=== PATIENT | female | born 1975 | race Caucasian/White ===

== ENCOUNTER 2016-10-30 07:41 | Emergency (ER) | payer BC ==
[~2016-10-30] VITALS: Ht 167.6 cm; Wt 74.6 kg
[~2016-10-30 07:41] MED LIST: NO DAILY MEDS
[2016-10-30 07:42] VITALS: TEMP 97.7; Ht 167.6 cm; Wt 74.6 kg
[2016-10-30] MEDS ORDERED: NORMAL SALINE 1,000 ML IV ONE (07:46)
--- OUTSIDE RECORDS SUMMARY | 2016-10-30 07:46 | XMS REPORT | Continuity of Care Document ---
Author Author [facility] Organization [facility] Address Unknown Phone Unavailable Support Name Relationship Address Phone JO MOORE MD Caregiver [address] [place] [address] DONNA LARES MD Caregiver [address] [place] [address] [place] [id number] TAWANA GONZALEZ Next Of Kin [address] [place] [phone] Insurance Providers Payer Name Policy Number Subscriber Name Relationship Meritain n [id number] Ivana Paez 16 Self Advance Directives Directive Response Recorded Date/Time Advanced Directives Type None 01/20/14 12:25pm Problems Medical Problems Problem Onset Date Status Concussion Unknown Active Head injury Unknown Active Concussion Unknown Active Medications Medication Dose Route Sig Days/Qty Instructions Order Date Discontinued Date Status [None] 01/24/09 08/19/09 Discontinued [Bactrim] 03/20/09 08/19/09 Discontinued [Water Pill Otc] 03/20/09 08/19/09 Discontinued [Amoxicillin] 08/19/09 08/20/09 Discontinued [No Known Meds] 01/20/14 Active Ondansetron 4 Mg PO EVERY 4-6 HOURS 15 Qty 01/20/14 Active Social History Social History Problem Response Recorded Date/Time Smoking Status Current every day smoker 01/20/2014 12:30pm Hx Substance Use No 01/20/2014 12:30pm Hx Alcohol Use No 01/20/2014 12:30pm Query Response Start Date Stop Date Smoking Status Unknown if ever smoked Hospital Discharge Instructions No hospital discharge instructions. Plan of Care No plan of care. Functional Status Query Response Date Recorded Physical Hygiene Self January 20, 2014 12:30pm Disabilities None January 20, 2014 12:30pm Devices Used None January 20, 2014 12:30pm Dressing Self January 20, 2014 12:30pm Ambulation Self January 20, 2014 12:30pm Diet Self January 20, 2014 12:30pm Mental Status Alert Oriented January 20, 2014 1:32pm Disabilities None January 20, 2014 12:30pm Devices Used None January 20, 2014 12:30pm Physical Hygiene Self January 20, 2014 12:30pm Dressing Self January 20, 2014 12:30pm Ambulation Self January 20, 2014 12:30pm Diet Self January 20, 2014 12:30pm Allergies, Adverse Reactions, Alerts Allergen Type Severity Reaction Status Last Updated No Known Allergies Active 01/20/14 Immunizations Name Given Type Hx Influenza Vaccination Y March 2009 Historical Hx Pneumococcal Vaccination No Historical Hx Tetanus, Diptheria, Pertussis Yes Historical Hx Influenza Vaccination Y March 2009 Historical Hx Tetanus, Diptheria, Pertussis Yes Historical Vital Signs Acute Vital Signs Vital Response Date/Time Temperature (Fahrenheit) 97 deg F (96.8 - 99.1) Temperature (Calculated Celsius) 36.1140 degrees C (36.0 - 37.3) Pulse Rate (adult) 67 bpm (60 - 100) Respiratory Rate 18 breaths/min (10 - 20) O2 Sat by Pulse Oximetry 100 % (90 - 100) Blood Pressure 117/75 mm Hg Height 5 ft 6 in Weight 161 lb Body Mass Index 26.0 kg/m^2 Results Test Source Date Result Interp. Ref. Range Comments Alanine Aminotransferase (ALT/SGPT) May 26, 2009 7:20pm 18 U/L N 9- 52 Albumin May 26, 2009 7:20pm 4.06 G/DL N 3.5-5.0 Albumin/Globulin Ratio May 26, 2009 7:20pm 1.3 RATIO N 1.1-2.2 Alkaline Phosphatase May 26, 2009 7:20pm 112 U/L N 38-126 Anion Gap August 22, 2009 5:03am 7.1 MEQ/L N 5-15 Aspartate Amino Transf (AST/SGOT) May 26, 2009 7:20pm 33 U/L N 14- 36 BUN/Creatinine Ratio August 22, 2009 5:03am 14 RATIO DN 6-26 Band Neutrophils # May 26, 2009 7:20pm 0.2 T/MM3 - Band Neutrophils % May 26, 2009 7:20pm 5.0 % N 0-6 Basophils # (Auto) August 22, 2009 5:03am 0.1 T/MM3 N 0-0.2 Basophils # (Manual) March 27, 2009 8:20am 0.0 T/MM3 N 0-0.2 Basophils % (Manual) March 27, 2009 8:20am 1.0 % N 0-2 Basophils (%) (Auto) August 22, 2009 5:03am 1.2 % N 0-2 Blood Urea Nitrogen August 22, 2009 5:03am 10.0 MG/DL N 7-17 C-Reactive Protein March 27, 2009 8:20am < 5.0 MG/L 0-9 Calcium Level August 22, 2009 5:03am 9.1 MG/DL N 8.4-10.2 Calculated Osmolality August 22, 2009 5:03am 267 MOSM/KG N 261-280 Carbon Dioxide Level August 22, 2009 5:03am 32 MEQ/L H 22-30 Chloride Level August 22, 2009 5:03am 100 MEQ/L N 98-107 Creatinine August 22, 2009 5:03am 0.7 MG/DL N 0.7-1.2 Eosinophils # (Auto) August 22, 2009 5:03am 0.1 T/MM3 N 0-0.5 Eosinophils # (Manual) May 26, 2009 7:20pm 0.1 T/MM3 N 0-0.5 Eosinophils % (Manual) May 26, 2009 7:20pm 2.0 % N 0-4 Eosinophils (%) (Auto) August 22, 2009 5:03am 3.4 % N 0-4 Erythrocyte Sedimentation Rate March 27, 2009 8:20am 15 MM/HR N 0-20 Globulin May 26, 2009 7:20pm 3.1 G/DL N 2.4-3.6 Glucose Level August 22, 2009 5:03am 101 MG/DL N 65-110 Group A Streptococcus Screen January 29, 2009 11:00am Positive - Hematocrit August 22, 2009 5:03am 41.6 % N 36-46 Hemoglobin August 22, 2009 5:03am 13.6 GM/DL N 12-16 Influenza Type A Antigen January 24, 2009 4:55pm Negative - Influenza Type B Antigen January 24, 2009 4:55pm Negative - Lymphocytes # (Auto) August 22, 2009 5:03am 1.6 T/MM3 N 1-4.8 Lymphocytes # (Manual) May 26, 2009 7:20pm 2.5 T/MM3 N 1-4.8 Lymphocytes % (Manual) May 26, 2009 7:20pm 50.0 % H 23-45 Lymphocytes (%) (Auto) August 22, 2009 5:03am 38.6 % N 23-45 Mean Corpuscular Hemoglobin August 22, 2009 5:03am 29.1 UUG N 26-34 Mean Corpuscular Hemoglobin Concent August 22, 2009 5:03am 32.7 GM/DL N 31-37 Mean Corpuscular Volume August 22, 2009 5:03am 88.9 UM3 N 80-100 Mean Platelet Volume August 22, 2009 5:03am 10.9 UM3 H 7.4-10.4 Monocytes # (Auto) August 22, 2009 5:03am 0.4 T/MM3 N 0-0.8 Monocytes # (Manual) May 26, 2009 7:20pm 0.1 T/MM3 N 0-0.8 Monocytes % (Manual) May 26, 2009 7:20pm 2.0 % N 0-9.0 Monocytes (%) (Auto) August 22, 2009 5:03am 10.6 % H 0-9.0 Neutrophils # (Auto) August 22, 2009 5:03am 1.9 T/MM3 N 1.8-7.7 Neutrophils # (Manual) May 26, 2009 7:20pm 2.0 T/MM3 N 1.8-7.7 Neutrophils % (Manual) May 26, 2009 7:20pm 41.0 % N 33-66 Neutrophils (%) (Auto) August 22, 2009 5:03am 46.2 % N 33-66 Platelet Count August 22, 2009 5:03am 217 T/MM3 N 130-400 Potassium Level August 22, 2009 5:03am 4.3 MEQ/L N 3.6-5 RDW Standard Deviation August 22, 2009 5:03am 44.7 FL N 36.9-50.2 Red Blood Count August 22, 2009 5:03am 4.68 M/MM3 N 4.00-5.20 Sodium Level August 22, 2009 5:03am 139 MEQ/L N 134-144 Tests Not Done May 26, 2009 9:25pm Not done - Has specimen been collected/obtained? Y Total Bilirubin May 26, 2009 7:20pm < 0.10 MG/DL L 0.20-1.30 Total Protein May 26, 2009 7:20pm 7.2 G/DL N 6.3-8.2 Urine Bilirubin May 26, 2009 9:25pm Negative - Has specimen been collected/obtained? Y Urine Blood May 26, 2009 9:25pm Negative - Has specimen been collected/obtained? Y Urine Collection Type May 26, 2009 9:25pm Voided - Has specimen been collected/obtained? Y Urine Color May 26, 2009 9:25pm Yellow - Has specimen been collected/obtained? Y Urine Glucose (UA) May 26, 2009 9:25pm Negative - Has specimen been collected/obtained? Y Urine Ketones May 26, 2009 9:25pm Negative - Has specimen been collected/obtained? Y Urine Leukocyte Esterase May 26, 2009 9:25pm Negative - Has specimen been collected/obtained? Y Urine Nitrite May 26, 2009 9:25pm Negative - Has specimen been collected/obtained? Y Urine Protein May 26, 2009 9:25pm Negative - Has specimen been collected/obtained? Y Urine Specific [place] May 26, 2009 9:25pm 1.020 - Has specimen been collected/obtained? Y Urine Turbidity May 26, 2009 9:25pm Clear - Has specimen been collected/obtained? Y Urine Urobilinogen May 26, 2009 9:25pm Normal EU/DL - Has specimen been collected/obtained? Y Urine pH May 26, 2009 9:25pm 6.5 - Has specimen been collected/ obtained? Y White Blood Count August 22, 2009 5:03am 4.2 T/MM3 L 4.5-11.0 Glucometer October 08, 2013 11:09am 141 mg/dL H 65-110 Lab Scanned Report January 29, 2009 3:58pm LAB TEST FORM REQUEST [id number] - Glomerular Filtration Rate Calc August 22, 2009 5:03am 95 - Group A Streptococcus Culture Throat January 24, 2009 10:03am Name: IVANA PAEZ Unit #: [id number] : 1975 Sex: F Loc / Svc: ED DOS: 01/20/14 Signed Report #: [id number] DIAGNOSTIC IMAGING REPORT TYPE OF EXAM: CT HEAD W/O CONTRAST Dictated By: ALISON WAITE MD INDICATION: ITS.REASON: hit head, LOC CT HEAD W/O CONTRAST: Comparison: None Technique: Axial CT images through the head were performed without contrast. FINDINGS: The ventricles are of normal size, shape, and configuration for the patient's age. There is no evidence of acute intracranial hemorrhage, midline displacement, or mass effect. The CT attenuation of the brain parenchyma is normal within the cerebellum, brain stem , and cerebral hemispheres. The tympanic cavities and mastoid air cells are free of appreciable disease. There are no definite fractures of the skull base, calvarium, or visualized portion of the midface. IMPRESSION: No CT evidence of acute traumatic intracranial injury. . Procedures No known history of procedures. Encounters Encounter Location Date/Time Departed Emergency Room [facility] 01/20/14 12:06pm Recent Diagnosis
--- OUTSIDE RECORDS SUMMARY | 2016-10-30 07:46 | XMS REPORT | Continuity of Care Document ---
Author Author [facility] Organization [facility] Address Unknown Phone Unavailable Support Name Relationship Address Phone NOEMI BONDS DO Caregiver [facility] [address] [place] [phone] JO MOORE MD Caregiver [address] [place] [address] TAWANA GONZALEZ Next Of Kin [address] [place] [address] Insurance Providers Payer Name Policy Number Subscriber Name Relationship Meritain Pcn [id number] Ivana Paez 16 Self Problems Medical Problems Problem Onset Date Status Concussion Unknown Active Head injury Unknown Active Concussion Unknown Active Concussion Unknown Active Headache Unknown Active Concussion Unknown Active Medications Medication Dose Route Sig Days/Qty Instructions Order Date Discontinued Date Status [None] 01/24/09 08/19/09 Discontinued [Bactrim] 03/20/09 08/19/09 Discontinued [Water Pill Otc] 03/20/09 08/19/09 Discontinued [Amoxicillin] 08/19/09 08/20/09 Discontinued [No Known Meds] 01/20/14 Active Ondansetron 4 Mg PO EVERY 4-6 HOURS 15 Qty 01/20/14 Active Methylprednisolone 4 Mg PO DAILY For HEADACHE 1 Qty Use as Directed 01/24 Active Meclizine HCl 1 Tab PO TWICE A DAY For DIZZINESS 20 Qty 01/24/14 Active Social History Social History Problem Response Recorded Date/Time Smoking Status Current every day smoker 01/24/2014 2:58pm Hx Substance Use No 01/24/2014 2:58pm Hx Alcohol Use No 01/24/2014 2:58pm Query Response Start Date Stop Date Smoking Status Unknown if ever smoked Hospital Discharge Instructions No hospital discharge instructions. Plan of Care No plan of care. Functional Status Query Response Date Recorded Physical Hygiene Self January 24, 2014 2:58pm Disabilities None January 24, 2014 2:58pm Devices Used None January 24, 2014 2:58pm Dressing Self January 24, 2014 2:58pm Ambulation Self January 24, 2014 2:58pm Diet Self January 24, 2014 2:58pm Mental Status Alert Oriented January 24, 2014 2:58pm Disabilities None January 24, 2014 2:58pm Devices Used None January 24, 2014 2:58pm Physical Hygiene Self January 24, 2014 2:58pm Dressing Self January 24, 2014 2:58pm Ambulation Self January 24, 2014 2:58pm Diet Self January 24, 2014 2:58pm Allergies, Adverse Reactions, Alerts Allergen Type Severity Reaction Status Last Updated No Known Allergies Active 01/20/14 Immunizations Name Given Type Hx Influenza Vaccination Y FALL 2012 Historical Hx Pneumococcal Vaccination No Historical Hx Tetanus, Diptheria, Pertussis Yes Historical Hx Influenza Vaccination Y FALL 2012 Historical Hx Tetanus, Diptheria, Pertussis Yes Historical Vital Signs Acute Vital Signs Vital Response Date/Time Temperature (Fahrenheit) 97.4 deg F (96.8 - 99.1) Temperature (Calculated Celsius) 36.69856 degrees C (36.0 - 37.3) Pulse Rate (adult) 59 bpm (60 - 100) Respiratory Rate 16 breaths/min (10 - 20) O2 Sat by Pulse Oximetry 97 % (90 - 100) Blood Pressure 120/80 mm Hg Height 5 ft 6 in Weight 163 lb Body Mass Index 26.0 kg/m^2 Results Test Source Date Result Interp. Ref. Range Comments Alanine Aminotransferase (ALT/SGPT) January 24, 2014 3:25pm 39 U/L N 9- 52 Albumin January 24, 2014 3:25pm 4.1 G/DL N 3.5-5.0 Albumin/Globulin Ratio January 24, 2014 3:25pm 1.5 RATIO N 1.1-2.2 Alkaline Phosphatase January 24, 2014 3:25pm 98 U/L N 38-126 Anion Gap January 24, 2014 3:25pm 13 MEQ/L N 5-15 Aspartate Amino Transf (AST/SGOT) January 24, 2014 3:25pm 24 U/L N 14-36 BUN/Creatinine Ratio January 24, 2014 3:25pm 16 RATIO N 6-26 Band Neutrophils # May 26, 2009 7:20pm 0.2 T/MM3 - Band Neutrophils % May 26, 2009 7:20pm 5.0 % N 0-6 Basophils # (Auto) January 24, 2014 3:25pm 0.0 T/MM3 N 0-0.2 Basophils # (Manual) March 27, 2009 8:20am 0.0 T/MM3 N 0-0.2 Basophils % (Manual) March 27, 2009 8:20am 1.0 % N 0-2 Basophils (%) (Auto) January 24, 2014 3:25pm 0.6 % N 0-2 Blood Urea Nitrogen January 24, 2014 3:25pm 16.0 MG/DL N 7-17 C-Reactive Protein January 24, 2014 3:25pm < 5.0 MG/L 0-9 Calcium Level January 24, 2014 3:25pm 8.7 MG/DL N 8.4-10.2 Calculated Osmolality January 24, 2014 3:25pm 280 MOSM/KG N 261-280 Carbon Dioxide Level January 24, 2014 3:25pm 28 MEQ/L N 22-30 Chloride Level January 24, 2014 3:25pm 105 MEQ/L N 98-107 Creatinine January 24, 2014 3:25pm 1.0 MG/DL N 0.7-1.2 Eosinophils # (Auto) January 24, 2014 3:25pm 0.2 T/MM3 N 0-0.5 Eosinophils # (Manual) May 26, 2009 7:20pm 0.1 T/MM3 N 0-0.5 Eosinophils % (Manual) May 26, 2009 7:20pm 2.0 % N 0-4 Eosinophils (%) (Auto) January 24, 2014 3:25pm 3.6 % N 0-4 Erythrocyte Sedimentation Rate January 24, 2014 3:25pm 5 MM/HR N 0-20 Globulin January 24, 2014 3:25pm 2.7 G/DL N 2.4-3.6 Glucose Level January 24, 2014 3:25pm 68 MG/DL N 65-110 Group A Streptococcus Screen January 29, 2009 11:00am Positive - Hematocrit January 24, 2014 3:25pm 40.7 % N 36-46 Hemoglobin January 24, 2014 3:25pm 13.2 GM/DL N 12-16 Influenza Type A Antigen January 24, 2009 4:55pm Negative - Influenza Type B Antigen January 24, 2009 4:55pm Negative - Lymphocytes # (Auto) January 24, 2014 3:25pm 2.4 T/MM3 N 1-4.8 Lymphocytes # (Manual) May 26, 2009 7:20pm 2.5 T/MM3 N 1-4.8 Lymphocytes % (Manual) May 26, 2009 7:20pm 50.0 % H 23-45 Lymphocytes (%) (Auto) January 24, 2014 3:25pm 49.6 % H 23-45 Mean Corpuscular Hemoglobin January 24, 2014 3:25pm 29.5 UUG N 26-34 Mean Corpuscular Hemoglobin Concent January 24, 2014 3:25pm 32.4 GM/DL N 31-37 Mean Corpuscular Volume January 24, 2014 3:25pm 91.1 UM3 N 80-100 Mean Platelet Volume January 24, 2014 3:25pm 11.4 UM3 N 9.4-12.4 Monocytes # (Auto) January 24, 2014 3:25pm 0.4 T/MM3 N 0-0.8 Monocytes # (Manual) May 26, 2009 7:20pm 0.1 T/MM3 N 0-0.8 Monocytes % (Manual) May 26, 2009 7:20pm 2.0 % N 0-9.0 Monocytes (%) (Auto) January 24, 2014 3:25pm 7.4 % N 0-9.0 Neutrophils # (Auto) January 24, 2014 3:25pm 1.8 T/MM3 N 1.8-7.7 Neutrophils # (Manual) May 26, 2009 7:20pm 2.0 T/MM3 N 1.8-7.7 Neutrophils % (Manual) May 26, 2009 7:20pm 41.0 % N 33-66 Neutrophils (%) (Auto) January 24, 2014 3:25pm 38.6 % N 33-66 Platelet Count January 24, 2014 3:25pm 181 T/MM3 N 130-400 Potassium Level January 24, 2014 3:25pm 3.6 MEQ/L N 3.6-5 RDW Standard Deviation January 24, 2014 3:25pm 43.7 FL N 36.9-50.2 Red Blood Count January 24, 2014 3:25pm 4.47 M/MM3 N 4.00-5.20 Sodium Level January 24, 2014 3:25pm 146 MEQ/L H 134-144 Tests Not Done May 26, 2009 9:25pm Not done - Has specimen been collected/obtained? Y Total Bilirubin January 24, 2014 3:25pm < 0.10 MG/DL L 0.20-1.30 Total Protein January 24, 2014 3:25pm 6.8 G/DL N 6.3-8.2 Urine Bilirubin January 24, 2014 4:25pm Negative - Has specimen been collected/obtained? Y Urine Blood January 24, 2014 4:25pm Negative - Has specimen been collected/obtained? Y Urine Collection Type January 24, 2014 4:25pm Cleancatch-midstream - Has specimen been collected/obtained? Y Urine Color January 24, 2014 4:25pm Yellow - Has specimen been collected/obtained? Y Urine Glucose (UA) January 24, 2014 4:25pm Negative - Has specimen been collected/obtained? Y Urine Ketones January 24, 2014 4:25pm Negative - Has specimen been collected/obtained? Y Urine Leukocyte Esterase January 24, 2014 4:25pm Negative - Has specimen been collected/obtained? Y Urine Nitrite January 24, 2014 4:25pm Negative - Has specimen been collected/obtained? Y Urine Protein January 24, 2014 4:25pm Negative - Has specimen been collected/obtained? Y Urine Specific [place] January 24, 2014 4:25pm >=1.030 H - Has specimen been collected/obtained? Y Urine Turbidity January 24, 2014 4:25pm Sl cloudy - Has specimen been collected/obtained? Y Urine Urobilinogen January 24, 2014 4:25pm 0.2 EU/DL - Has specimen been collected/obtained? Y Urine pH January 24, 2014 4:25pm 6.0 - Has specimen been collected/ obtained? Y White Blood Count January 24, 2014 3:25pm 4.7 T/MM3 N 4.5-11.0 Chemistry Specimen Hemolysis January 24, 2014 3:25pm < 15 0-25 0-25: No Hemolysis.26-70: Slight Hemolysis - can falsely elevate K and Urine Protein. 71-285: Moderate Hemolysis - can falsely elevate K, Troponin I, CA 19-9, PTH, CSF GLucose, and Urine Protein, and can falsely decrease Phenytoin. 286-999: Gross Hemolysis - can falsely elevate K, Troponin I, CA 19-9, PTH, CSF Glucose, and Urine Protine, and can falsely decrease Phenytoin. Recommend specimen recollection. Urinalysis Comment January 24, 2014 4:25pm Microscopic not ind. - Has specimen been collected/obtained? Y Glucometer October 08, 2013 11:09am 141 mg/dL H 65-110 Lab Scanned Report January 29, 2009 3:58pm LAB TEST FORM REQUEST [id number] - Turbidity January 24, 2014 3:25pm < 20 0-20 Glomerular Filtration Rate Calc January 24, 2014 3:25pm 61 - Immature Granulocyte # (Auto) January 24, 2014 3:25pm 0.01 T/MM3 N 0.00- 0.03 Immature Granulocyte % (Auto) January 24, 2014 3:25pm 0.2 % N 0.0-0.5 Icterus Index January 24, 2014 3:25pm < 2 0-7 Group A Streptococcus Culture Throat January 24, 2009 10:03am Name: IVANA PAEZ Unit #: [id number] : 1975 Sex: F Loc / Svc: ED DOS: 01/24/14 Signed Report #: [id number] DIAGNOSTIC IMAGING REPORT TYPE OF EXAM: CT HEAD W/O CONTRAST Dictated By: ALISON WAITE MD INDICATION: ITS.REASON: altered mental status CT HEAD W/O CONTRAST: Comparison: January 20, 2014 Technique: Axial CT images through the head were performed without contrast. FINDINGS: The ventricles are of normal size, shape, and contour for the patient 's age. The brainstem, cerebellum, and cerebral hemispheres have a normal morphology and CT attenuation. There is no evidence of midline displacement. No hemorrhage, signs of acute territorial stroke, mass effect, mass lesions, or edema is evident. The visualized portions of the skull base, midface, and calvarium demonstrate no abnormality. The paranasal sinuses are well aerated and free of significant disease. The tympanic and mastoid cavities appear normal. IMPRESSION: No acute intracranial abnormality or hemorrhage. . Procedures No known history of procedures. Encounters Encounter Location Date/Time Departed Emergency Room [facility] 01/24/14 2:40pm Departed Emergency Room [facility] 01/20/14 12:06pm Recent Diagnosis
--- OUTSIDE RECORDS SUMMARY | 2016-10-30 07:46 | XMS REPORT | Continuity of Care Document ---
Author Author [facility] Organization [facility] Address Unknown Phone Unavailable Allergies Active Description Code Type Severity Reaction Onset Reported/Identified Relationship to Patient Clinical Status Yes No Known Allergies No Known Allergies Drug Allergy Unknown N/A 10/08/2013 Medications Problems Procedures Results Test Result Range CBC W/DIFF - 10/25/14 09:41 GRANULOCYTE # 6.4 k/cumm 2.0-9.0 GRANULOCYTE % 77 % 50-75 LYMPHOCYTE # 1.1 k/cumm 1.0-4.0 LYMPHOCYTE % 13 % 20-30 MEAN CELL HGB 29.3 pg 27.0-33.0 MEAN CELL HGB CONCENTRATION 33.1 g/dL 32.0-37.0 MEAN CELL VOLUME 88.6 fl 80.0-100.0 MONOCYTE # 0.8 k/cumm 0.1-1.0 MONOCYTE % 9 % 4-6 RED BLOOD CELL 4.47 m/cumm 4.00-6.00 RED CELL DISTRIBUTION WIDTH 13.9 % 11.0- 15.6 WHITE BLOOD CELL 8.3 k/cumm 5.0-10.0 HEMOGLOBIN 13.1 gm/dL 12.0-16.0 HEMATOCRIT 39.6 % 37.0-47.0 PLATELET COUNT 172 k/cumm 150-400 HEPATIC FUNCTION PANEL - 10/25/14 09:41 BILI UNCONJUGATED 0.4 mg/dL 0.0-0.7 AST/SGOT 17 Units/L 10-37 ALT/SGPT 29 Units/L < 66 TOTAL PROTEIN 7.2 gm/dL 6.4-8.2 ALBUMIN 3.5 gm/dL 3.4-5.0 BILI TOTAL 0.6 mg/dL 0.0-1.0 ALKALINE PHOSPHATASE TOTAL 83 IU/L 45- 117 BILI CONJUGATED 0.2 mg/dL 0.0-0.3 LIPASE - 10/25/14 09:41 LIPASE 83 Units/L 73-393 CHEM/HEM PROFILE-BEDSIDE - 10/25/14 09:46 POTASSIUM 3.5 mmol/L 3.5-5.3 METHOD Bedside ANION GAP 23 mmol/L 10-20 METHOD Bedside GLUCOSE 104 mg/dL 70-99 BLOOD UREA NITROGEN 3 mg/dL 7-20 CREATININE 0.7 mg/dL 0.6-1.0 HEMOGLOBIN 13.6 gm/dL 12.0-16.0 HEMATOCRIT 40.0 % 37.0-47.0 SODIUM 138 mmol/L 135-148 CHLORIDE 97 mmol/L 98-110 CARBON DIOXIDE 22 mmol/L 21-32 CALCIUM IONIZED 4.6 mg/dL 4.5-5.3 URINALYSIS, ROUTINE - 10/25/14 10:22 UA LEUKOCYTE ESTERASE DIPSTICK TRACE NEGATIVE UA NITRITE DIPSTICK POSITIVE NEGATIVE UA PROTEIN DIPSTICK 1+ NEGATIVE UA GLUCOSE DIPSTICK TRACE NEGATIVE UA KETONE DIPSTICK TRACE NEGATIVE UA UROBILINOGEN DIPSTICK NORMAL NORMAL UA BILIRUBIN DIPSTICK NEGATIVE NEGATIVE UA BLOOD DIPSTICK NEGATIVE NEGATIVE UA SPECIFIC GRAVITY 1.015 1.015-1.025 UR PH 6.0 5.0-7.0 UA MICROSCOPIC - 10/25/14 10:22 UA EPITHELIAL CELLS 1+ epi/hpf 0 - 1+ UA MUCUS 1+ NEG TO 1+ UA RBC 0-3 rbc/hpf 0 - 3 UA VOLUME FOR EXAM 12.0 mL (12mL STD) UA WBC 5-10 wbc/hpf 0 - 5 Encounters ACCT No. Visit Date/Time Discharge Status Pt. Type Provider Facility Loc./Unit Complaint [id number] 10/25/2014 09:04:00 2014 11:22:00 DIS Emergency Leda CARTAGENA, [facility]
--- OUTSIDE RECORDS SUMMARY | 2016-10-30 07:46 | XMS REPORT | Continuity of Care Document ---
Author Author [facility] Organization [facility] Address Unknown Phone Unavailable Support Name Relationship Address Phone YOKO KELLY MD Caregiver [address] [place] [address] [place] [address] Unavailable YOKO KELLY MD Caregiver [address] [place] [address] [place] [address] Unavailable FRANCIA BIRCH DO Caregiver [address] [address] Unavailable ARSH FLORES DO Caregiver [address] [place] [address] Unavailable TAWANA GONZALEZ Next Of Kin [address] [place] [phone] Insurance Providers Guarantor Ivana Paez Address [address] [place] [address] CP Email [email or web address] [facility] Policy Number [id number] Subscriber's Name Ivana Paez Relationship 18 Self Group Number [id number] Advance Directives Directive Response Recorded Date/Time Ordered Resuscitation Status Full Code 08/13/16 7:06am Resuscitation Documents on File No 08/13/16 7:45am DPOA for Healthcare Only No 08/13/16 8:59am Living Will No 08/13/16 7:45am Problems Active Problems Medical Problem Onset Date Status Allergic reaction caused by a drug Unknown Acute Concussion Unknown Acute Concussion Unknown Acute Concussion Unknown Acute Concussion Unknown Acute Cystitis Unknown Acute Head injury Unknown Acute Headache Unknown Acute Hx of headache Unknown Chronic Intractable abdominal pain Unknown Acute Nausea & vomiting Unknown Acute Patient left without being seen Unknown Acute Tobacco dependence Unknown Chronic UTI (urinary tract infection) Unknown Acute UTI (urinary tract infection) Unknown Acute Surgical Problem Onset Date Status S/P complete hysterectomy Unknown Resolved Past Problems Medical Problem Onset Date Abdominal pain Unknown Medications Current Home Medications Medication Dose Units Route Directions Days Qty Instructions Start Date No Daily Meds 08/13/16 Past Home Medications Medication Directions Ordered Status Amoxicillin , 08/19/09 Discontinued Bactrim , 03/20/09 Discontinued None , 01/24/09 Discontinued Sulfamethoxazole/Trimethoprim (Bactrim Ds Tablet) 1 Each Tablet, 1 Tab Oral Twice A Day 11/07/14 Discontinued Water Pill Otc , 03/20/09 Discontinued Social History Social History Problem Response Recorded Date/Time Onset Date Status Chewing Tobacco Status No 08/13/2016 4:54am Not Applicable Not Applicable Hx Substance Use No 08/13/2016 4:54am Not Applicable Not Applicable Hx Alcohol Use Y OCC 08/13/2016 4:54am Not Applicable Not Applicable Has the pt used tobacco in the last 12 months Yes 08/13/2016 7:52am Not Applicable Not Applicable Tobacco Usage smoke 01/20/2014 12:51pm Not Applicable Not Applicable Query Response Start Date Stop Date Smoking Status Light Smoker Hospital Discharge Instructions No hospital discharge instructions. Plan of Care Discharge Date 08/13/16 9:35pm Disposition 07 AGAINST MEDICAL ADVICE Prescriptions See Medication Section Functional Status Query Response Date Recorded Mobility Status Ambulatory August 13, 2016 8:10am Assistive Devices None August 13, 2016 8:10am Activity Limitations None August 13, 2016 8:10am Feeding Ability Independent August 13, 2016 8:10am Toileting Ability Independent August 13, 2016 8:10am Grooming Ability Independent August 13, 2016 8:10am Dressing Ability Independent August 13, 2016 8:10am Driving Ability Independent August 13, 2016 8:10am Housework Ability Independent August 13, 2016 8:10am Meal Preparation Ability Independent August 13, 2016 8:10am Stair Climbing Ability Independent August 13, 2016 8:10am Ability to complete ADL's impeded by No change August 13, 2016 8:10am Cognitive/Perceptual Impairments None August 13, 2016 8:10am Preferred Method of Learning Reading August 13, 2016 8:10am Allergies, Adverse Reactions, Alerts Allergen Type Severity Reaction Status Last Updated Sulfamethoxazole Allergy Severe RESP Active 08/13/16 Trimethoprim Allergy Severe RESP Active 08/13/16 Immunizations Query Response on File Recorded Date/Time Hx Influenza Vaccination Y fall 201508/13/16 7:52am Hx Pneumococcal Vaccination No 08/13/16 7:52am Hx Tetanus, Diptheria, Pertussis Yes 11/07/14 2:03pm Hx Influenza Vaccination Y fall 201508/13/16 7:52am Hx Tetanus, Diptheria, Pertussis Yes 11/07/14 2:03pm Influenza Vaccine Hx 08/13/16 12:00pm Vital Signs Acute Vital Signs Vital Response Date/Time Temperature (Fahrenheit) 97.6 deg F (96.8 - 99.1) 08/13/2016 8:00pm Temperature (Calculated Celsius) 36.29220 degrees C (36.0 - 37.3) 08/13/2016 8:00pm Pulse Rate (adult) 60 bpm (60 - 100) 08/13/2016 8:00pm Respiratory Rate 22 breaths/min (10 - 20) 08/13/2016 8:00pm O2 Sat by Pulse Oximetry 97 % (90 - 100) 08/13/2016 8:00pm Oxygen Delivery Method Room Air 08/13/2016 8:00pm Blood Pressure 110/65 mm Hg 08/13/2016 8:00pm Blood Pressure Source Automatic Cuff 08/13/2016 8:00pm Height (Feet) 5 feet 08/13/2016 8:59am Height (Inches) 6.00 inches 08/13/2016 8:59am Weight (Kilograms) 73.200 kg 08/13/2016 8:10am Body Mass Index (BMI) 26.1 08/13/2016 7:44am Results Laboratory Results Test Name Result Units Flags Reference Collection Date/Time Result Date/ Time Comments White Blood Count 9.6 T/MM3 4.5-11.0 08/13/2016 5:04am 08/13/2016 5: 16am Red Blood Count 5.16 M/MM3 4.00-5.20 08/13/2016 5:04am 08/13/2016 5: 16am Hemoglobin 15.1 GM/DL 12-16 08/13/2016 5:04am 08/13/2016 5:16am Hematocrit 46.3 % H 36-46 08/13/2016 5:04am 08/13/2016 5:16am Mean Corpuscular Volume 89.7 UM3 80-100 08/13/2016 5:04am 08/13/2016 5: 16am Mean Corpuscular Hemoglobin 29.3 UUG 26-34 08/13/2016 5:04am 2016 5:16am Mean Corpuscular Hemoglobin Concent 32.6 GM/DL 31-37 08/13/2016 5:04am 08/13/2016 5:16am RDW Standard Deviation 43.3 FL 36.9-50.2 08/13/2016 5:04am 08/13/2016 5 :16am Platelet Count 218 T/MM3 130-400 08/13/2016 5:04am 08/13/2016 5:16am Mean Platelet Volume 11.5 UM3 9.4-12.4 08/13/2016 5:04am 08/13/2016 5: 16am Neutrophils (%) (Auto) 78.6 % H 33-66 08/13/2016 5:04am 08/13/2016 5: 16am Lymphocytes (%) (Auto) 14.4 % L 23-45 08/13/2016 5:04am 08/13/2016 5: 16am Monocytes (%) (Auto) 4.3 % 0-9.0 08/13/2016 5:04am 08/13/2016 5:16am Eosinophils (%) (Auto) 2.2 % 0-4 08/13/2016 5:04am 08/13/2016 5:16am Basophils (%) (Auto) 0.2 % 0-2 08/13/2016 5:04am 08/13/2016 5:16am Immature Granulocyte % (Auto) 0.3 % 0.0-0.5 08/13/2016 5:04am 2016 5:16am Absolute Neutrophils (auto) 7.6 T/MM3 1.8-7.7 08/13/2016 5:04am 2016 5:16am Absolute Lymphocytes (auto) 1.4 T/MM3 1-4.8 08/13/2016 5:04am 2016 5:16am Absolute Monocytes (auto) 0.4 T/MM3 0-0.8 08/13/2016 5:04am 08/13/2016 5:16am Absolute Eosinophils (auto) 0.2 T/MM3 0-0.5 08/13/2016 5:04am 2016 5:16am Absolute Basophils (auto) 0.0 T/MM3 0-0.2 08/13/2016 5:04am 08/13/2016 5:16am Absolute Immature Granulocyte (auto 0.03 T/MM3 0.00-0.03 08/13/2016 5: 04am 08/13/2016 5:16am Icterus Index < 2 0-7 08/13/2016 5:00am 08/13/2016 9:27am Chemistry Specimen Hemolysis < 15 0-25 08/13/2016 5:00am 08/13/2016 9 :27am 0-25: Specimen Exhibited No Hemolysis. Turbidity < 20 0-20 08/13/2016 5:00am 08/13/2016 9:27am Sodium Level 140 MEQ/L 134-144 08/13/2016 5:04am 08/13/2016 5:22am Potassium Level 4.1 MEQ/L 3.6-5 08/13/2016 5:04am 08/13/2016 5:22am Chloride Level 102 MEQ/L 98-107 08/13/2016 5:04am 08/13/2016 5:22am Carbon Dioxide Level 27 MEQ/L 22-08/13/2016 5:04am 08/13/2016 5: 22am Anion Gap 11 MEQ/L 5-15 08/13/2016 5:04am 08/13/2016 5:22am Blood Urea Nitrogen 13.0 MG/DL 7-17 08/13/2016 5:04am 08/13/2016 5: 22am Creatinine 0.8 MG/DL 0.7-1.2 08/13/2016 5:04am 08/13/2016 5:22am BUN/Creatinine Ratio 16 RATIO 6-26 08/13/2016 5:04am 08/13/2016 5:22am Glomerular Filtration Rate Calc 78 08/13/2016 5:04am 08/13/2016 5: 22am Glucose Level 117 MG/DL H 65-110 08/13/2016 5:04am 08/13/2016 5:22am Calculated Osmolality 270 MOSM/KG 261-280 08/13/2016 5:04am 08/13/2016 5:22am Calcium Level 8.8 MG/DL 8.4-10.2 08/13/2016 5:04am 08/13/2016 5:22am Total Bilirubin 0.40 MG/DL 0.20-1.30 08/13/2016 5:00am 08/13/2016 9: 27am Unconjugated Bilirubin 0.10 MG/DL 0.00-1.10 08/13/2016 5:00am 2016 9:27am Conjugated Bilirubin 0.00 MG/DL 0.00-0.30 08/13/2016 5:00am 08/13/2016 9:27am Alkaline Phosphatase 89 U/L 38-126 08/13/2016 5:00am 08/13/2016 9:27am Total Protein 6.6 G/DL 6.3-8.2 08/13/2016 5:00am 08/13/2016 9:27am Albumin 3.9 G/DL 3.5-5.0 08/13/2016 5:00am 08/13/2016 9:27am Globulin 2.7 G/DL 2.4-3.6 08/13/2016 5:00am 08/13/2016 9:27am Albumin/Globulin Ratio 1.4 RATIO 1.1-2.2 08/13/2016 5:00am 08/13/2016 9 :27am Aspartate Amino Transf (AST/SGOT) 23 U/L 14-36 08/13/2016 5:00am 2016 9:27am Alanine Aminotransferase (ALT/SGPT) 30 U/L 9-52 08/13/2016 5:00am 08/13 9:27am Lipase 114 U/L 23-300 08/13/2016 5:04am 08/13/2016 5:32am Urine Collection Type CLEANCATCH-MIDSTREAM 08/13/2016 5:04am 2016 8:26am Urine Color YELLOW YELLOW 08/13/2016 5:04am 08/13/2016 8:26am Urine Turbidity CLEAR CLEAR 08/13/2016 5:04am 08/13/2016 8:26am Urine Specific [place] <=1.005 L 1.015-1.025 08/13/2016 5:04am 2016 8:26am Urine pH 7.0 5.0-8.0 08/13/2016 5:04am 08/13/2016 8:26am Urine Leukocyte Esterase NEGATIVE NEGATIVE 08/13/2016 5:04am 2016 8:26am Urine Nitrite NEGATIVE NEGATIVE 08/13/2016 5:04am 08/13/2016 8:26am Urine Protein NEGATIVE NEGATIVE 08/13/2016 5:04am 08/13/2016 8:26am Urine Glucose (UA) NEGATIVE NEGATIVE 08/13/2016 5:04am 08/13/2016 8: 26am Urine Ketones NEGATIVE NEGATIVE 08/13/2016 5:04am 08/13/2016 8:26am Urine Urobilinogen 0.2 EU/DL NORMAL 08/13/2016 5:04am 08/13/2016 8: 26am Urine Bilirubin NEGATIVE NEGATIVE 08/13/2016 5:04am 08/13/2016 8: 26am Urine Blood NEGATIVE NEGATIVE 08/13/2016 5:04am 08/13/2016 8:26am Urinalysis Comment MICROSCOPIC NOT IND. 08/13/2016 5:04am 2016 8:26am Name: IVANA PAEZ Unit #: [id number] : 1975 Sex: F Admit Date: 08/13/16 Loc / Svc: MED Discharge Date: DIAGNOSTIC IMAGING REPORT Report [facility] [id number] Indication: ITS.REASON: RUQ Pain PROCEDURE: US GALLBLADDER: Encounter: Initial Comparison: CT abdomen/pelvis dated August 13, 2016 Technique: Grayscale and color Doppler sonographic imaging of the right upper quadrant of the abdomen was performed. Findings: Hepatic parenchyma is homogeneous without evidence for focal mass. The gallbladder is normal. There is no wall thickening, pericholecystic fluid, or cholelithiasis. Sonographic Mir's sign was reportedly positive. Both the intra and extrahepatic biliary system are of normal caliber with the common duct measuring 4 mm in dimension. Visualized portions of the head and body of the pancreas are unremarkable. The right kidney is present without collecting system dilatation. The right kidney measures 11.1 cm in length. Impression: Isolated positive sonographic Mir sign of uncertain clinical significance, otherwise normal exam. . Procedures No known history of procedures. Encounters Encounter Location Arrival/Admit Date Discharge/Depart Date Attending Provider Discharged Inpatient (obs) [facility] 08/13/16 7:06am 08/13/16 9: 35pm YOKO KELLY MD
--- OUTSIDE RECORDS SUMMARY | 2016-10-30 07:50 | XMS REPORT | Continuity of Care Document ---
Author Author [facility] Organization [facility] Address Unknown Phone Unavailable Support Name Relationship Address Phone JO MOORE MD Caregiver [address] [place] [address] DONNA LARES MD Caregiver [address] [place] [address] [place] [phone] TAWANA GONZALEZ Next Of Kin [address] [place] [phone] Insurance Providers Payer Name Policy Number Subscriber Name Relationship Meritain n [id number] Ivana Paez 18 Self Advance Directives Directive [...] Has specimen been collected/obtained? Y Urine Specific [place] May 26, 2009 9:25pm 1.020 - Has [...] 29, 2009 3:58pm LAB TEST FORM REQUEST [id number] - Glomerular Filtration Rate Calc August 22, 2009 5:03am 95 - Group A Streptococcus Culture Throat January 24, 2009 10:03am Name: IVANA PAEZ Unit #: [id number] : 1975 Sex: F Loc / Svc: ED DOS: 01/20/14 Signed Report #: [id number] DIAGNOSTIC IMAGING REPORT TYPE OF EXAM: CT [...] Encounters Encounter Location Date/Time Departed Emergency Room [facility] 01/20/14 12:06pm Recent Diagnosis
--- OUTSIDE RECORDS SUMMARY | 2016-10-30 07:50 | XMS REPORT | Continuity of Care Document ---
Author Author [facility] Organization [facility] Address Unknown Phone Unavailable Support Name Relationship Address Phone NOEMI BONDS DO Caregiver [facility] [address] [place] [phone] JO MOORE MD Caregiver [address] [place] [address] TAWANA GONZALEZ Next Of Kin [address] [place] [address] Insurance Providers Payer Name Policy Number Subscriber Name Relationship Meritain Pcn [id number] Ivana Paez 18 Self Problems Medical Problems [...] F (96.8 - 99.1) Temperature (Calculated Celsius) 36.63346 degrees C (36.0 - 37.3) Pulse Rate [...] Has specimen been collected/obtained? Y Urine Specific [place] January 24, 2014 4:25pm >=1.030 H - [...] 29, 2009 3:58pm LAB TEST FORM REQUEST [id number] - Turbidity January 24, 2014 3:25pm < [...] 2009 10:03am Name: IVANA PAEZ Unit #: [id number] : 1975 Sex: F Loc / Svc: ED DOS: 01/24/14 Signed Report #: [id number] DIAGNOSTIC IMAGING REPORT TYPE OF EXAM: CT [...] Encounters Encounter Location Date/Time Departed Emergency Room [facility] 01/24/14 2:40pm Departed Emergency Room [facility] 01/20/14 12:06pm Recent Diagnosis
--- OUTSIDE RECORDS SUMMARY | 2016-10-30 07:51 | XMS REPORT | Continuity of Care Document ---
Author Author [facility] Organization [facility] Address Unknown Phone Unavailable Allergies Active Description [...] Status Pt. Type Provider Facility Loc./Unit Complaint [id number] 10/25/2014 09:04:00 2014 11:22:00 DIS Emergency Leda CARTAGENA, [facility]
--- NOTE | 2016-10-30 07:54 | ERPDOC ---
Departure Disposition Decision Date: October 30, 2016 Disposition Decision Time: 08:57 Disposition: 01 DISCHARGED HOME, SELF-CARE Impression Impression Impression: Primary Impression: Gastroenteritis Additional Impressions: Abdominal pain Abdominal location: generalized Qualified Codes: R10.84 - Generalized abdominal pain Nausea & vomiting Vomiting type: unspecified Vomiting Intractability: non-intractable Qualified Codes: R11.2 - Nausea with vomiting, unspecified Severity: Severe Condition: Improved Seen By: Physician only Referrals: ARSH FLORES DO (Family) 1 Week Patient Instructions: Gastroenteritis (ED) Problems/Meds/Labs Reviewed?: Yes Medications reviewed and manag: Yes Additional Instructions: You have gastroenteritis (a stomach bug) caused by either a virus or a toxin in your food. Take naproxen or ibuprofen as needed for your pain. Drink lots of liquids, and take zofran as needed for nausea. Allow any diarrhea to take its course. Follow up with your doctor in the next few days. Follow up care ordered?: Yes Mental Status: Alert, Oriented Scripts Naproxen (Naproxen) 500 Mg Tablet.dr 1 TAB PO BID Y for PAIN, #60 TAB Prov: FRANCIA BIRCH DO 10/30/16 Ondansetron (Ondansetron Odt) 4 Mg Tab.rapdis 4 MG PO Q6HR, #20 TAB Prov: FRANCIA BIRCH DO 10/30/16 HPI - Abdominal Pain General Stated Complaint: ABD PAIN Time Seen by Provider: 07:43 Source: patient, EMS History/Exam Limitations: no limitations HPI - Abdominal Pain Initial Comments 41yo woman presents to the ER via EMS today with abrupt onset of abd pain. Pt c/ o abrupt onset of generalized abd pain that started abruptly this AM after pt climbed into her car. Pt called EMS, because she couldn't drive. Says that she was admitted to [facility] earlier this year for an 'angry gallbladder', but left AMA. Was given 50mcg fentanyl with pain decrease to 8/10; declined further pain meds , because they make her feel like she's floating. Zofran x2 improved her sx. Occurred At: other Onset: Rapid Duration: 1 hr Pain Scale: Now: 8/10, Worst: 10/10 Quality: sharpness, stabbing Location: generalized abdomen Radiation: no radiation Activities at Onset: activity Modifying Factors: IMPROVES WITH: analgesics, WORSE WITH: movement, palpation Associated Symptoms: nausea/vomiting Hx of Similar Symptoms: Yes Allergies: Coded Allergies: sulfamethoxazole (Verified Allergy, Severe, RESP, 10/30/16) trimethoprim (Verified Allergy, Severe, RESP, 10/30/16) Past History Unable to Obtain PMH Due to: clinical condition Patient Medical History (1) Abdominal pain Patient Surgical History Complete hysterectomy. Carpal tunnel. Left wrist dislocation with surgical reduction. Multiple laparoscopic abdominal surgeries for adhesion removal [place] teeth removal Past Medical History Female: UTI Surgical History General: other Reproductive/: hysterectomy Joint: carpal tunnel Family History Family PMH: FOUND: CVA, diabetes Vaccines Hx Influenza Vaccination: Yes (Fall 2015) Hx Pneumococcal Vaccination: No Hx Tetanus, Diptheria, Pertuss: Yes Social History Substance Use Type: does not use Alcohol Intake: occasionally Housing: house Current Occupational Status: employed Review of Systems Unable to Obtain ROS Due to: clinical condition GI Upper Abdomen: heartburn/indigestion, nausea, pain, vomiting, DENIES: dysphagia , food intolerances, hematemesis Lower Abdomen: pain, DENIES: blood in stool, dania-colored stools, constipation , diarrhea, melena, painful BM All other Systems All Other Systems: Reviewed and Negative Physical Exam General General Nourishment: well nourished, well developed, no acute distress, adult General Body Habitus: disheveled Vitals and Pain First Documented Vital Signs Date Time Temp Pulse Resp B/P Pulse Ox O2 Delivery O2 Flow Rate FiO2 10/30/16 07:42 97.7 71 20 129/87 98 Room Air Weight: Kilograms: Height (feet): 5 Height (inches): 6.00 Triage Pain Scale: RN VS reviewed by Provider: Yes Normal Exams: Head: Normocephalic w/o trauma Eyes: Pupils are PERRLA w/ EOMI ENMT: No facial trauma, nasal exudates, pharyngeal erythema Neck: Full range of motion, without adenopathy, JVD Lymphatic: No lymphadenopathy Musculoskeletal: No tenderness, or deformity noted Integumentary: No rashes, hives, or bruising noted Neurologic: Patient is alert, and oriented Psychiatric: Patient exhibits, appropriate attention Respiratory (brief) Respiratory: FOUND: clear all bell, equal bilaterally, symmetrical, NOT FOUND : rales, wheezes Cardiovascular (brief) Cardiac: FOUND: regular rate, regular rhythm, NOT FOUND: click, gallop, murmur , pedal edema, peripheral edema, rub Capillary Refill: <2 sec Pulses: all distal extremities, equal, strong Abdomen (brief) Abdominal Brief: FOUND: bowel normo active x4, soft, NOT FOUND: distended, hepatosplenomegaly, pulsatile mass, tender Differential Diagnoses Considering: Appendicitis, Biliary Colic, Cholecystitis, Constipation, Gastroenteritis, GERD, Hernia, Ileus, Pancreatitis, Pneumonia, Pyelonephritis, Renal Colic, UTI, Volvulus Progress Results/Orders Orders Procedure Category Date Status Time Iv Lock (Ed Only) EDM 10/30/16 Transmitted 07:46 Nothing By Mouth (Ed EDM 10/30/16 Transmitted Only) 07:46 Cbc W/Auto LAB 10/30/16 Complete Diff-Reflex Manual 07:46 Cmp - Comprehensive LAB 10/30/16 Complete Metabolic 07:46 Lipase LAB 10/30/16 Complete 07:46 Normal Saline (Normal PHA 10/30/16 Complete Saline Iv) 07:46 Ondansetron Inj PHA 10/30/16 Complete (Zofran) 08:00 Ketorolac (Toradol) PHA 10/30/16 Complete 08:00 Us Abdomen Limited US 10/30/16 Resulted 07:46 Ua, Dip Wreflex LAB 10/30/16 Complete [employer] 08:00 Promethazine PHA 10/30/16 Complete (Phenergan) 09:30 Lab Results Laboratory Tests Test 10/30/16 07:58 10/30/16 09:00 White Blood Count 9.5T/MM3 Red Blood Count 5.07M/MM3 Hemoglobin 14.5GM/DL Hematocrit 44.8% Mean Corpuscular Volume 88.4UM3 Mean Corpuscular Hemoglobin 28.6UUG Mean Corpuscular Hemoglobin Concent 32.4GM/DL RDW Standard Deviation 45.6FL Platelet Count 222T/MM3 Mean Platelet Volume 10.6UM3 Immature Granulocyte % (Auto) 0.2% Neutrophils (%) (Auto) 81.9% Lymphocytes (%) (Auto) 12.3% Monocytes (%) (Auto) 3.8% Eosinophils (%) (Auto) 1.7% Basophils (%) (Auto) 0.1% Absolute Immature Granulocyte (auto 0.02T/MM3 Absolute Neutrophils (auto) 7.8T/MM3 Absolute Lymphocytes (auto) 1.2T/MM3 Absolute Monocytes (auto) 0.4T/MM3 Absolute Eosinophils (auto) 0.2T/MM3 Absolute Basophils (auto) 0.0T/MM3 Turbidity < 20 Sodium Level 148MEQ/L Potassium Level 4.0MEQ/L Chloride Level 104MEQ/L Carbon Dioxide Level 27MEQ/L Anion Gap 17MEQ/L Blood Urea Nitrogen 12.0MG/DL Creatinine 0.8MG/DL Glomerular Filtration Rate Calc 78 BUN/Creatinine Ratio 15RATIO Glucose Level 103MG/DL Calculated Osmolality 284MOSM/KG Calcium Level 9.6MG/DL Total Bilirubin 0.40MG/DL Icterus Index < 2 Aspartate Amino Transf (AST/SGOT) 28U/L Alanine Aminotransferase (ALT/SGPT) 45U/L Alkaline Phosphatase 90U/L Total Protein 7.0G/DL Albumin 4.5G/DL Globulin 2.5G/DL Albumin/Globulin Ratio 1.8RATIO Lipase 160U/L Chemistry Specimen Hemolysis < 15 Urine Collection Type Cleancatch-midstream Urine Color Yellow Urine Turbidity Sl cloudy Urine pH 8.5 Urine Specific [place] 1.015 Urine Protein Negative Urine Glucose (UA) Negative Urine Ketones Negative Urine Blood Negative Urine Nitrite Negative Urine Bilirubin Negative Urine Urobilinogen 0.2EU/DL Urine Leukocyte Esterase Negative Urinalysis Comment Microscopic not ind. Medications Current ED Medications Sodium Chloride (Normal Saline IV) 1,000 ml @ 0 mls/hr Q0M ONCE IV Last administered on 10/30/16 08:03; Start 10/30/16 at 07:46; Stop 10/30/16 at 07:48 ; Status DC Ondansetron HCl (Zofran) 4 mg O ONCE IV Last administered on 10/30/16 08:03; Start 10/30/16 at 08:00; Stop 10/30/16 at 08:01; Status DC Ketorolac Tromethamine (Toradol) 30 mg O ONCE IV Last administered on 08:03; Start 10/30/16 at 08:00; Stop 10/30/16 at 08:01; Status DC Promethazine HCl (Phenergan) 25 mg O ONCE IV Last administered on 10/30/16 09 :24; Start 10/30/16 at 09:30; Stop 10/30/16 at 09:31; Status DC Progress Progress 41yo woman with similar presentation as 3 months ago. Labs largely unremarkable ; no evidence of serious infx, cholelithiasis, pancreatitis, etc. Most likely has acute GE. Will give pt instructions on sx-atic care and instructions to f/u with PCM as outpt to ensure that she is improving. Ultrasound US : Ultrasound: Gallbladder US Interpretation: Normal, Reviewed Written Report FRANCIA BIRCH DO October 30, 2016 07:53
[2016-10-30] MEDS ORDERED: ONDANSETRON 4mg/2ml INJECTION IV ONE (08:00)
[2016-10-30] MEDS ORDERED: KETOROLAC 30mg/ml INJECTION IV ONE (08:00)
[2016-10-30 08:06] LABS: BASOPHILS % (AUTO) 0.1 % (0-2); EOSINOPHILS # (AUTO) 0.2 T/MM3 (0-0.5); EOSINOPHILS % (AUTO) 1.7 % (0-4); HCT - HEMATOCRIT 44.8 % (36-46); HGB - HEMOGLOBIN 14.5 GM/DL (12-16); IMMATURE GRANULOCYTE # (AUTO) 0.02 T/MM3 (0.00-0.03); IMMATURE GRANULOCYTE % (AUTO) 0.2 % (0.0-0.5); LYMPHOCYTES # (AUTO) 1.2 T/MM3 (1-4.8); LYMPHOCYTES % (AUTO) 12.3 % (23-45); MEAN CORPUSCULAR HGB 28.6 UUG (26-34); MEAN CORPUSCULAR HGB CONC(MCHC 32.4 GM/DL (31-37); MEAN CORPUSCULAR VOLUME 88.4 UM3 (80-100); MEAN PLATELET VOLUME 10.6 UM3 (9.4-12.4); MONOCYTES # (AUTO) 0.4 T/MM3 (0-0.8); MONOCYTES % (AUTO) 3.8 % (0-9.0); NEUTROPHILS #(AUTO)-ABSOLUTE 7.8 T/MM3 (1.8-7.7); NEUTROPHILS % (AUTO) 81.9 % (33-66); RED BLOOD COUNT 5.07 M/MM3 (4.00-5.20); WBC - WHITE BLOOD COUNT 9.5 T/MM3 (4.5-11.0)
[2016-10-30 08:15] LABS: ALBUMIN 4.5 G/DL (3.5-5.0); ALBUMIN/GLOBULIN RATIO 1.8 RATIO (1.1-2.2); ALKALINE PHOSPHATASE 90 U/L (38-126); ALT (SGPT) 45 U/L (9-52); ANION GAP 17 MEQ/L (5-15); AST (SGOT) 28 U/L (14-36); BUN/CREATININE RATIO 15 RATIO (6-26); CALCIUM 9.6 MG/DL (8.4-10.2); CHLORIDE 104 MEQ/L (98-107); CO2 - CARBON DIOXIDE 27 MEQ/L (22-30); CREATININE 0.8 MG/DL (0.7-1.2); GLOMERULAR FILTRATION RATE 78; GLUCOSE 103 MG/DL (65-110); LIPASE 160 U/L (23-300); SODIUM 148 MEQ/L (134-144)
--- NOTE | 2016-10-30 08:18 | NUR ---
SONO AT BEDSIDE.
--- NOTE | 2016-10-30 08:30 | NUR ---
SONO COMPLETE AT THIS TIME.
--- NOTE | 2016-10-30 08:52 | NUR ---
VOID PT ASSISTED TO BATHROOM TO VOID FOR UA.
--- NOTE | 2016-10-30 08:55 | DI ---
EXAM: US ABDOMEN LIMITED LOCATION OF DICT[place] [facility] [place]ISON: None available. HISTORY: ITS.REASON: RUQ pain; h/o cholecystitis FINDINGS: PANCREAS: Unremarkable. What is able to be seen of the head and body of the pancreas appears unremarkable. The tail of the pancreas is not well visualized and is not able to be evaluated. AORTA/IVC: Unremarkable. No evidence for aneurysm. LIVER: Unremarkable. Normal in echotexture, size, and appearance. No intrahepatic ductal dilatation. No lesions are seen. The main portal vein has normal color Doppler flow and direction. GALLBLADDER: Unremarkable. No evidence for gallstones, gallbladder wall thickening, or pericholecystic fluid. The patient is not tender over the gallbladder with transducer pressure. CBD: Unremarkable. Normal in caliber. No intra or extrahepatic ductal dilatation. Normal for age. 3.6 mm RIGHT KIDNEY: Unremarkable. Normal in echotexture, size, appearance, and color Doppler flow without hydronephrosis. 10 cm x 4.3 x 5.1 cm. COMMENTS: None. IMPRESSION: Unremarkable exam without evidence for cholelithiasis or other signs of acute or chronic cholecystitis. Note: This report was generated soon after the exam was performed and is immediately available to the ordering clinician on 10/30/2016 8:50 AM. .
[2016-10-30] MEDS ORDERED: ONDA4TAB10 PO (09:01)
[2016-10-30 09:11] LABS: BLOOD, URINE NEGATIVE (NEGATIVE); COLOR,URINE YELLOW (YELLOW); LEUKOCYTE ESTERASE ,URINE NEGATIVE (NEGATIVE); NITRITE,URINE NEGATIVE (NEGATIVE); UROBILINOGEN,URINE 0.2 EU/DL (NORMAL)
--- NOTE | 2016-10-30 09:16 | NUR ---
DR BIRCH AT BEDSIDE TO TALK WITH PT. PLAN FOR DISMISSAL.
[2016-10-30] MEDS ORDERED: NAPR500T6 PO (09:18)
[2016-10-30] MEDS ORDERED: PROMETHAZINE 25 MG INJECTION IV ONE (09:30)
[2016-10-30 09:45] VITALS: BP 122/75; PULSE 70; RESP 16; O2SAT 99
--- NOTE | 2016-10-30 09:48 | NUR ---
IVL SITE DC'D AT THIS TIME. CATH INTACT. DRSG APPLIED TO SITE.
--- NOTE | 2016-10-30 09:49 | NUR ---
DISMISSAL INSTRUCTIONS, WORK NOTE AND RX GIVEN/REVIEWED WITH PT. VERBALIZES UNDERSTANDING. PT LEAVES DEPT AMBULATORY UPON DISMISSAL.
== END 2016-10-30 09:49 | disposition home or self-care (01) ==
LOC: ED 07:41
DX: K52.9 Noninfective gastroenteritis and colitis, unspecified (principal)
CPT/HCPCS: 36415; 76705; 80053; 81003; 83690; 85025; 96361; 96374; 96375; 99284; J1885; J2405; J2550; J7030